=== PATIENT | female | born 1980 | race Two or more races ===

== ENCOUNTER 2022-11-07 17:04 | Inpatient (IN) | payer OTHER ==
[~2022-11-07] VITALS: Ht 162.6 cm; Wt 71.7 kg
[~2022-11-07 17:04] MED LIST: TYLENOL-CODEINE1 TAB PO; [UNRECOGNIZED DRUG - OTHER] PO
--- NOTE | 2022-11-07 17:17 | NUR ---
SE RECIBE PTE FEMENINA DE 42Y ALERTA Y ORIENTADA X3 ACOMPANADA DE FAMILIAR. PTE REFIERE QUE DESDE [place] PRESENTADO DOLOR PELVICO QUE INTENSIFICA MAS EN [place] LADO DERECHO. SE MONITOREAN S/V Y SE UBICA A PTE EN AREA DE OBSERVACION.
--- NOTE | 2022-11-07 18:28 | NUR ---
PTE EVALUADO POR MD [place] MED. SE EDUCA A PTE SOBRE EL MISMO Y REFIERE ENTENDER. S EEJECUTAN ORDENES BAJO MEDIDAS ACEPTICAS. PTE PEND A SONO Y RESULTADOS DE LABS.
--- NOTE | 2022-11-07 23:18 | NUR ---
SE RECIBE PTE DE TURNO ANTERIOR, ALERTA Y ORIENTADA X3, PTE SE OBSERVA CON BUEN PATRON RESPIRATORIO, CAMA EN [place] NIVEL MAS BAJO, BARANDAS ELEVADAS POR [place] SEGURIDAD, ANGIO PATENTE #20 LT, MICHAEL DUNG DE EDEMA Y ERITEMA, BAJANDO UN .9% DE NSS A 100ML/HR. S/V ESTABLES, PTE REFIERE SENTIR MEJORIA. PENDIENTE CT, SE NOTIFICA A PERSONAL. PTE EN OBSERVACION.
--- NOTE | 2022-11-08 00:02 | NUR ---
PTE PENDIENTE A CONSULTA CON DRA.DAISY PENNINGTON
--- NOTE | 2022-11-08 07:31 | NUR ---
SE RECIBE PTE ALERTA Y ORIENTADO POR 3 PTE EN AREA DE OBSERVACION EN DERIC CON BARANDAS ELEVADA Y TIMBRE ACCESIBLE, SE OBSERVA VENOPUNCION PATENTE Y DUNG DE EDEMA, PTE SE MANTIENE EN OBSERVAVCION Y BAJO TRATAMIENTO. PTE EN ESEPRA DE SUPERVISOR FABRICATION TO OR. POR LA DRA PENNINGTON
[2022-11-08] MEDS ORDERED: HYDROCORTISO453.6 G1 (15:17)
[2022-11-08] MEDS ORDERED: ACETAMINOPHEN-1 EAC2 PO (23:40)
[2022-11-08] MEDS ORDERED: PEPCID AC20 MG PO (23:42)
[2022-11-08] MEDS ORDERED: DICLOFENAC POTA50 MG PO (23:42)
== END 2022-11-09 06:35 | disposition home or self-care (01) | DRG 743 ==
LOC: ER 17:04 → O/R 11-08 13:38 → SEC-K 11-08 13:38 → O/R 11-08 14:57
PROVIDERS: ADMIT Obstetrics & Gynecology; ATTEND Obstetrics & Gynecology
PROC: 0UT74ZZ Resection of Bilateral Fallopian Tubes, Percutaneous Endoscopic Approach (ICD-10-PCS; principal; 2022-11-08 15:00)
DX: N83.6 Hematosalpinx (principal); Z20.822 Contact with and (suspected) exposure to COVID-19

== ENCOUNTER 2024-02-01 15:40 | Emergency (ER) | payer OTHER ==
[~2024-02-01] VITALS: Ht 162.6 cm; Wt 72.6 kg
[~2024-02-01 15:40] MED LIST changes: +ACETAMINOPHEN-1 EAC2 PO; +DICLOFENAC POTA50 MG PO; +HYDROCORTISO453.6 G1; +PEPCID AC20 MG PO
[2024-02-01] MEDS ORDERED: KETOROLAC TROMETHAMINE 30 MG VIAL IV STA (17:32)
[2024-02-01] MEDS ORDERED: CIPROFLOXACIN IN 5 % DEXTROSE 400 MG/200 ML PIGGYBAG IV STA (17:33)
[2024-02-01] MEDS ORDERED: CIPROFLOXACIN IN 5 % DEXTROSE 400 MG/200 ML PIGGYBAG IV ONE (17:42)
[2024-02-01] MEDS ORDERED: KETOROLAC TROMETHAMINE 30 MG VIAL ONE (17:42)
[2024-02-01 18:20] LABS: HEMATOCRIT 29.5 % (36.0-45.00); HEMOGLOBIN 9.6 g/dL (12.0-15.00); MEAN CORPUSCULAR HEMOGLOBIN 21.5 pg (27.00-32.0); MEAN CORPUSCULAR HGB CONC 32.4 g/dl (32.0-36.0); PLATELET COUNT 222 K/uL (150-450); RED BLOOD COUNT 4.44 M/uL (4.00-6.00)
[2024-02-01 18:23] LABS: MEAN CELL VOLUME 66.4 fL (80.00-100.00)
[2024-02-01 18:26] LABS: PH,URINE 6.5 (5.0-8.0); URINE APPEARANCE Cloudy; URINE BILIRRUBIN Negative (NEGATIVE); URINE BLOOD Large; URINE COLOR Yellow; URINE GLUCOSE Negative (NEGATIVE); URINE KETONE Negative (NEGATIVE); URINE LEUKOCYTE Large; URINE NITRATE Positive
[2024-02-01 18:30] LABS: URINE BACTERIA 7112.1 uL (0.0-1933); URINE EPITHELIAL CELLS 35.4 uL (0.0-38.8); URINE RBC 97.8 uL (0.0-20.8); URINE WBC 1144.3 uL (0.0-23.2)
[2024-02-01 18:32] LABS: URINE PROTEIN 100 (NEGATIVE)
== END 2024-02-01 20:56 | disposition home or self-care (01) ==
LOC: ER 15:40
DX: N30.80 Other cystitis without hematuria (principal)